=== PATIENT | female | born 1970 | race Caucasian/White ===

== ENCOUNTER 2022-01-16 11:13 | Day surgery (SDC) | payer BC ==
[~2022-01-16 11:13] MED LIST: Lactated Ringers 1,000 ML IV SCH
[2022-01-16] MEDS ORDERED: fentaNYL 100 MCG/2 ML SDV ONE (11:36)
[2022-01-16] MEDS ORDERED: Propofol 200 MG/20 ML SDV ONE ×2 (11:36→12:36)
[2022-01-16] MEDS ORDERED: Ondansetron 8 MG in Sodium Chloride 0.9% 100 ML IV PRN (13:28)
[2022-01-16] MEDS ORDERED: Ondansetron 4 MG/2 ML SDV IVPUSH PRN (13:33)
== END 2022-01-16 15:00 | disposition home or self-care (01) ==
LOC: VM.SDS 11:13
PROVIDERS: ATTEND Family Medicine
DX: Z12.11 Encounter for screening for malignant neoplasm of colon (principal); D12.2 Benign neoplasm of ascending colon; F41.9 Anxiety disorder, unspecified; E78.1 Pure hyperglyceridemia; G43.909 Migraine, unspecified, not intractable, without status migrainosus; E66.01 Morbid (severe) obesity due to excess calories; Z88.1 Allergy status to other antibiotic agents; Z98.890 Other specified postprocedural states; Z79.899 Other long term (current) drug therapy; Z88.5 Allergy status to narcotic agent; Z88.8 Allergy status to other drugs, medicaments and biological substances; Z87.891 Personal history of nicotine dependence; Z68.41 Body mass index [BMI] 40.0-44.9, adult
CPT/HCPCS: 00812; J1790; J2405; J2704; J3010; J7120